=== PATIENT | female | born 1965 | race Caucasian/White ===

== ENCOUNTER 2016-08-18 18:01 | Emergency (ER) | payer OTHER ==
[~2016-08-18] VITALS: Wt 77.0 kg
[~2016-08-18 18:01] MED LIST: RISP2TAB3 PO
[2016-08-18] MEDS ORDERED: SOD CHLORIDE 0.9% 1,000 ML IV STA (18:37)
[2016-08-18] MEDS ORDERED: ACETAMINOPHEN 325 MG TAB PO ONE (19:00)
[2016-08-18 19:40] LABS: ADD SCAN DIFF NO
[2016-08-18 19:42] LABS: BASOPHIL # 0.1 10^3/ul (0.0-0.1); BASOPHILS % 0.5 % (0.0-2.0); EOSINOPHILS # 0.1 10^3/ul (0.0-0.5); EOSINOPHILS % 1.4 % (0.0-7.0); HEMATOCRIT 38.4 % (37.0-47.0); HEMOGLOBIN 13.2 g/dl (12.0-16.0); LYMPHOCYTES # 3.1 10^3/ul (0.8-2.9); LYMPHOCYTES % 32.5 % (15.0-51.0); MEAN CORPUSCULAR HEMOGLOBIN 33.2 pg (29.0-33.0); MEAN CORPUSCULAR HGB CONC 34.4 g/dl (32.0-37.0); MEAN CORPUSCULAR VOLUME 96.7 fl (82.0-101.0); MEAN PLATELET VOLUME 10.1 fl (7.4-10.4); MONOCYTE # 0.6 10^3/ul (0.3-0.9); MONOCYTES % 6.4 % (0.0-11.0); NEUTROPHIL # 5.6 10^3/ul (1.6-7.5); PLATELET COUNT 398 10^3/UL (140-415); RED BLOOD COUNT 3.97 10^6/ul (4.20-5.40); RED CELL DISTRIBUTION WIDTH 11.5 % (11.5-14.5); WHITE BLOOD COUNT 9.4 10^3/ul (4.8-10.8)
[2016-08-18 20:05] LABS: ALBUMIN 4.3 g/dl (3.3-4.9); POTASSIUM 3.9 mmol/L (3.5-5.1)
[2016-08-18 20:07] LABS: BILIRUBIN,INDIRECT 0.1 mg/dl (0-1.1); BILIRUBIN,TOTAL 0.1 mg/dl (0.2-1.3); CREATININE 0.65 mg/dl (0.44-1.00)
[2016-08-18 20:08] LABS: ALBUMIN/GLOBULIN RATIO 1.59; CALCIUM 9.1 mg/dl (8.4-10.2)
[2016-08-18 20:35] LABS: URINE BLOOD (Dip) POC Negative (NEGATIVE)
[2016-08-18] MEDS ORDERED: MECL-77 PO (20:39)
[2016-08-18] MEDS ORDERED: IBUP-1542 PO (20:39)
--- NOTE | 2016-08-18 20:41 | ERD ---
ER Documentation Chief Complaint Date/Time DATE: 08/18/16 TIME: 20:40 Chief Complaint DIZZINESS SUDDEN ONSET TODAY. NO NEURO DEF, NO RECENT TRAUMA. HPI This 51-year-old female presents with sudden onset of spinning type dizziness today. She has a low-grade temperature at triage. She has a cough, sore throat , urinary complaints, vomiting or abdominal pain, chest pain or shortness of breath. Patient denies any new medications or taking medications that she was not supposed to. History is significant for poly-medication overdose approximately 1 year ago. patient takes Celexa and Xanax per ROS All systems reviewed and are negative except as per history of present illness. Medications Home Meds Active Scripts Meclizine Hcl* (Meclizine Hcl*) 25 Mg Tablet, 25 MG PO Q8H Y for DIZZINESS, #15 TAB Prov:MEHDI NEVAREZ MD 08/18/16 Ibuprofen* (Motrin*) 600 Mg Tab, 600 MG PO Q6, #15 TAB Prov:MEHDI NEVAREZ MD 08/18/16 Reported Medications Risperidone* (Risperidone*) 2 Mg Tablet, 2 MG PO BID, TAB 08/12/15 Allergies Allergies: Coded Allergies: No Known Allergy (Unverified , 08/14/15) PMhx/Soc History of Surgery: Yes (ECTOPIC ,TONSILS,BREAST AUGMENTATION) Anesthesia Reaction: No Hx Neurological Disorder: No Hx Respiratory Disorders: No Hx Cardiac Disorders: No Hx Psychiatric Problems: Yes (schizo-affective disorder, anxiety) Hx Miscellaneous Medical Probl: Yes (schizoaffective disorder, anxiety, alcohol abuse. ) Hx Alcohol Use: Yes (OCCASSIONALLY) Hx Substance Use: No Hx Tobacco Use: No Smoking Status: Former smoker Physical Exam Vitals Vital Signs Date Time Temp Pulse Resp B/P Pulse Ox O2 Delivery O2 Flow Rate FiO2 08/18/16 18:03 100.1 102 20 137/87 98 Physical Exam Const: [] Alert, [id number] per Head: Atraumatic Eyes: Normal Conjunctiva ENT: Normal External Ears, Nose and Mouth. Neck: Full range of motion..~ No meningismus. Resp: Clear to auscultation bilaterally Cardio: Regular rate and rhythm, no murmurs Abd: Soft, non tender, non distended. Normal bowel sounds Skin: No petechiae or rashes Back: No midline or flank tenderness Ext: No cyanosis, or edema Neur: Awake and alert Psych: Blunted affect but no evidence of hallucinations or suicidal or homicidal ideations. Patient acting appropriately. Result Diagram: 08/18/[id number]/[id number] Results 24 hrs Laboratory Tests Test 08/18/16 18:49 08/18/16 20:37 White Blood Count 9.410^3/ul Red Blood Count 3.9710^6/ul Hemoglobin 13.2g/dl Hematocrit 38.4% Mean Corpuscular Volume 96.7fl Mean Corpuscular Hemoglobin 33.2pg Mean Corpuscular Hemoglobin Concent 34.4g/dl Red Cell Distribution Width 11.5% Platelet Count 58582^3/UL Mean Platelet Volume 10.1fl Neutrophils % 59.0% Lymphocytes % 32.5% Monocytes % 6.4% Eosinophils % 1.4% Basophils % 0.5% Nucleated Red Blood Cells % 0.0/100WBC Neutrophils # 5.610^3/ul Lymphocytes # 3.110^3/ul Monocytes # 0.610^3/ul Eosinophils # 0.110^3/ul Basophils # 0.110^3/ul Nucleated Red Blood Cells # 0.010^3/ul Sodium Level 138mmol/L Potassium Level 3.9mmol/L Chloride Level 109mmol/L Carbon Dioxide Level 23mmol/L Anion Gap 10 Blood Urea Nitrogen 7mg/dl Creatinine 0.65mg/dl Glucose Level 79mg/dl Calcium Level 9.1mg/dl Total Bilirubin 0.1mg/dl Direct Bilirubin 0.00mg/dl Indirect Bilirubin 0.1mg/dl Aspartate Amino Transf (AST/SGOT) 30IU/L Alanine Aminotransferase (ALT/SGPT) 36IU/L Alkaline Phosphatase 70IU/L Total Protein 7.0g/dl Albumin 4.3g/dl Globulin 2.70g/dl Albumin/Globulin Ratio 1.59 Lipase 55U/L Bedside Urine pH (LAB) 5.0 Bedside Urine Protein (LAB) Negative Bedside Urine Glucose (UA) Negative Bedside Urine Ketones (LAB) Negative Bedside Urine Blood Negative Bedside Urine Nitrite (LAB) Negative Bedside Urine Leukocyte Esterase (L Negative Current Medications Medications (Trade) Dose Ordered Sig/Dharmesh Route PRN Reason Start Time Stop Time Status Last Admin Dose Admin Sodium Chloride (NS) 1,000 ml @ 1,000 mls/hr Q1H STAT IV 08/18/16 18:37 08/18/16 19:36 DC 08/18/16 18:49 Acetaminophen (Tylenol Tab) 650 mg ONCE ONCE PO 08/18/16 19:00 08/18/16 19:01 DC 08/18/16 18:49 Procedures/MDM Patient presents with reproducible spinning type dizziness low-grade temperature of uncertain etiology. CBC and CMP and urine are all negative and hCG is negative. Patient was given 1 L normal saline IV for mild tachycardia and Tylenol 650 mg of mouth. Patient was stable amatory had benign abdomen clear lungs with no apparent distress on serial exam. Patient may have early viral illness. Patient was discharged home with prescription ibuprofen, short course of Antivert and further observation at home. The patient was stable with no new complaints during the ER course. Clinically, there is no current evidence to suggest meningitis, sepsis, acute abdomen, pneumonia, acute coronary syndrome, pulmonary embolism, or any other emergent condition appearing to require further evaluation or hospitalization. The patient should certainly return for any new or worsening symptoms per the aftercare instructions. They should otherwise follow-up with her primary care doctor for reevaluation this week. Departure Diagnosis: Primary Impression: Febrile illness Additional Impression: Dizziness Condition: Stable Patient Instructions: Dizziness, Unk Cause, Febrile Illness, Uncertain Cause ( Adult) Additional Instructions: Exam is normal today. May be early viral illness. Drink plenty of fluids and rest at home and recheck for new or worsening symptoms or primary care doctor. MEHDI NEVAREZ MD August 18, 2016 20:41
[2016-08-18 20:50] VITALS: BP 109/61; PULSE 97; RESP 16; TEMP 99.3
[2016-08-18 21:08] LABS: ADD UMIC NO; URINE BILIRUBIN (Dip) NEGATIVE (NEGATIVE); URINE BLOOD (Dip) NEGATIVE (NEGATIVE); URINE COLOR LT. YELLOW (YELLOW); URINE GLUCOSE (Dip) NEGATIVE (NEGATIVE); URINE KETONES (Dip) NEGATIVE (NEGATIVE); URINE LEUKOCYTE ESTERASE (Dip) NEGATIVE (NEGATIVE); URINE NITRITE (Dip) NEGATIVE (NEGATIVE); URINE TOTAL PROTEIN (Dip) NEGATIVE (NEGATIVE); URINE UROBILINOGEN (Dip) 0.2 E.U./dL (0.1-1.0)
== END 2016-08-18 20:51 | disposition home or self-care (01) ==
LOC: FTE 18:01
DX: R50.9 Fever, unspecified (principal); Z87.891 Personal history of nicotine dependence
CPT/HCPCS: 80053; 81003; 83690; 85025; J7030; Z7610; 36415

== ENCOUNTER 2017-07-20 20:26 | Inpatient (IN) | END 2017-07-31 14:15 | disposition home or self-care (01) | DRG 917 ==

== ENCOUNTER 2018-01-01 19:57 | Emergency (ER) | END 2018-01-01 21:00 | disposition left against medical advice (07) ==

== ENCOUNTER 2018-01-02 03:37 | Emergency (ER) | END 2018-01-02 06:07 | disposition home or self-care (01) ==

== ENCOUNTER 2018-05-11 08:46 | Emergency (ER) | payer OTHER ==
[~2018-05-11] VITALS: Ht 157.5 cm; Wt 66.2 kg
[~2018-05-11 08:46] MED LIST changes: +CEPH-443 PO; +CEPH500C PO; +METH27TA PO; +OLAN15TA7 PO
[2018-05-11 08:49] VITALS: RESP 18; Ht 157.5 cm; Wt 66.2 kg
[2018-05-11 09:09] VITALS: BP 144/103; PULSE 120
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
[2018-05-11] MEDS ORDERED: OLANZAPINE (ODT) 5 MG TAB ODT ONE (09:30)
== END 2018-05-11 09:53 | disposition home or self-care (01) ==
LOC: E/R 08:46
DX: F41.9 Anxiety disorder, unspecified (principal); F17.210 Nicotine dependence, cigarettes, uncomplicated
CPT/HCPCS: Z7502; Z7610; 99283

== ENCOUNTER 2018-05-11 10:52 | Emergency (ER) | payer OTHER ==
[~2018-05-11] VITALS: Ht 162.6 cm; Wt 65.0 kg
[2018-05-11 11:01] VITALS: BP 123/74; PULSE 113; RESP 16; Ht 162.6 cm; Wt 65.0 kg
--- NOTE | 2018-05-11 12:55 | ERD ---
ER Documentation Chief Complaint Chief Complaint BIB [facility] FOR EVAL OF ANXIETY. SEEN EARLIER TODAY FOR SAME. NO SI/HI HPI Patient is a 53-year-old female with a history of psychiatric disease who presents saying "I need a place to stay for the night". She was brought in by ambulance. She was just discharged by myself after being seen for anxiety. I believe she is malingering at this time. ROS All systems reviewed and are negative except as per history of present illness. Medications Home Meds Active Scripts Cephalexin* (Keflex*) 500 Mg Capsule, 500 MG PO QID for 5 Days, CAP Prov:BORIS LINARES PA-C 01/02/18 Cephalexin* (Cephalexin*) 500 Mg Capsule, 500 MG PO BID for 7 Days, #14 CAP Prov:PAVEL GRAVES 07/31/17 Reported Medications Methylphenidate Hcl* (Methylphenidate Hcl ER*) 27 Mg Tab.er.24, 27 MG PO BID, TAB 07/20/17 Olanzapine* (Olanzapine*) 15 Mg Tablet, 15 MG PO BID, TAB TAKE 1/2 TAB-QAM AND 1 TAB-QPM 07/20/17 Risperidone* (Risperidone*) 2 Mg Tablet, 2 MG PO BID, TAB 07/20/17 Allergies Allergies: Coded Allergies: No Known Allergy (Unverified , 07/20/17) PMhx/Soc History of Surgery: Yes (BREAST AUG) Anesthesia Reaction: No Hx Neurological Disorder: Yes Hx Respiratory Disorders: No Hx Cardiac Disorders: No Hx Psychiatric Problems: Yes (SCHIZOPHRENIA) Hx Miscellaneous Medical Probl: No Hx Alcohol Use: Yes (2 40oz daily) Hx Substance Use: Yes (alcohol, benzodiazepines) Hx Tobacco Use: Yes Smoking Status: Current some day smoker FmHx Family History: No diabetes Physical Exam Vitals Vital Signs Date Temp Pulse Resp B/P (MAP) Pulse Ox O2 O2 Flow FiO2 Time Delivery Rate 05/11/18 97.2 113 16 123/74 99 11:01 (90) Physical Exam Const: No acute distress Head: Atraumatic Eyes: Normal Conjunctiva ENT: Normal External Ears, Nose and Mouth. Neck: Full range of motion. No meningismus. Resp: Clear to auscultation bilaterally Cardio: Regular rate and rhythm, no murmurs Abd: Soft, non tender, non distended. Normal bowel sounds Skin: No petechiae or rashes Back: No midline or flank tenderness Ext: No cyanosis, or edema Neur: Awake and alert Psych: Flat affect but no suicidal or homicidal ideation Procedures/MDM Patient is a 53-year-old female who presents with anxiety. I do not believe she requires further workup or admission to the hospital at this time. I believe she has malingering. The patient will be discharged. She can return for any worsening symptoms. I do not believe she requires a 5150 hold at this time. Departure Diagnosis: Primary Impression: Malingering Condition: Fair Patient Instructions: Panic Attack Referrals: [facility] YOU HAVE RECEIVED A MEDICAL SCREENING EXAM AND THE RESULTS INDICATE THAT YOU DO NOT HAVE A CONDITION THAT REQUIRES URGENT TREATMENT IN THE EMERGENCY DEPARTMENT. FURTHER EVALUATION AND TREATMENT OF YOUR CONDITION CAN WAIT UNTIL YOU ARE SEEN IN YOUR DOCTORS OFFICE WITHIN THE NEXT 1-2 DAYS. IT IS YOUR RESPONSIBILITY TO MAKE AN APPOINTMENT FOR FOLOW-UP CARE. IF YOU HAVE A PRIMARY DOCTOR --you should call your primary doctor and schedule an appointment IF YOU DO NOT HAVE A PRIMARY DOCTOR YOU CAN CALL OUR PHYSICIAN REFERRAL HOTLINE AT IF YOU CAN NOT AFFORD TO SEE A PHYSICIAN YOU CAN CHOSE FROM THE FOLLOWING [facility] [id number] [facility]. [facility] [address] [facility]. [facility] [address] [facility] [facility] [address] [facility]. [facility] [address] [facility]. [facility]. [address] Additional Instructions: Call your primary care doctor TOMORROW for an appointment during the next [address].Tell the field secretary that you were referred from this facility.See the doctor sooner or return here if your condition worsens before your appointment time. ABIGAIL MENDIETA MD May 11, 2018 12:55
== END 2018-05-11 11:17 | disposition home or self-care (01) ==
LOC: E/R 10:52
DX: Z76.5 Malingerer [conscious simulation] (principal); F17.210 Nicotine dependence, cigarettes, uncomplicated
CPT/HCPCS: 99283

== ENCOUNTER 2018-05-12 07:22 | Emergency (ER) | payer SELFPAY ==
[~2018-05-12] VITALS: Ht 167.6 cm; Wt 66.1 kg
[2018-05-12 07:24] VITALS: BP 135/65; PULSE 81; RESP 20; Ht 167.6 cm; Wt 66.1 kg
== END 2018-05-12 10:03 | disposition left against medical advice (07) ==
LOC: E/R 07:22
DX: Z53.21 Procedure and treatment not carried out due to patient leaving prior to being seen by health care provider (principal)

== ENCOUNTER 2018-05-14 05:53 | Emergency (ER) | payer OTHER ==
[~2018-05-14] VITALS: Wt 67.2 kg
[2018-05-14 05:54] VITALS: BP 142/93; PULSE 113; RESP 18
[2018-05-14] MEDS ORDERED: LORA-441 PO (06:17)
--- NOTE | 2018-05-14 06:20 | ERD ---
ER Documentation Chief Complaint Chief Complaint ANXIETY, SOB HPI 53-year-old female presents to the emergency department complaining of anxiety. Patient states she has been compliant with her psychiatric medications but has recently begun to feel more anxious. She denies suicidal or homicidal thoughts, auditory or visual hallucinations. She does report recent alcohol use. She denies any tremor or seizure. She has no other medical complaints. She did describe some shortness of breath associated with her anxiety but no chest pain or palpitations, no fevers or chills, no hemoptysis or sputum production. ROS All systems reviewed and are negative except as per history of present illness. Medications Home Meds Active Scripts Lorazepam* (Ativan*) 0.5 Mg Tablet, 0.5 MG PO Q8 PRN for ANXIETY, #10 TAB Prov:JODIE REDDING 05/14/18 Cephalexin* (Keflex*) 500 Mg Capsule, 500 MG PO QID for 5 Days, CAP Prov:BORIS LINARES PA-C 01/02/18 Cephalexin* (Cephalexin*) 500 Mg Capsule, 500 MG PO BID for 7 Days, #14 CAP Prov:PAVEL GRAVES 07/31/17 Reported Medications Methylphenidate Hcl* (Methylphenidate Hcl ER*) 27 Mg Tab.er.24, 27 MG PO BID, TAB 07/20/17 Olanzapine* (Olanzapine*) 15 Mg Tablet, 15 MG PO BID, TAB TAKE 1/2 TAB-QAM AND 1 TAB-QPM 07/20/17 Risperidone* (Risperidone*) 2 Mg Tablet, 2 MG PO BID, TAB 07/20/17 Allergies Allergies: Coded Allergies: No Known Allergy (Unverified , 07/20/17) PMhx/Soc History of Surgery: Yes (BREAST AUG) Anesthesia Reaction: No Hx Neurological Disorder: Yes Hx Respiratory Disorders: No Hx Cardiac Disorders: No Hx Psychiatric Problems: Yes (SCHIZOPHRENIA) Hx Miscellaneous Medical Probl: No Hx Alcohol Use: Yes (2 40oz daily) Hx Substance Use: Yes (alcohol, benzodiazepines) Hx Tobacco Use: No Smoking Status: Never smoker Physical Exam Vitals Vital Signs Date Temp Pulse Resp B/P (MAP) Pulse Ox O2 O2 Flow FiO2 Time Delivery Rate 05/14/18 98.6 113 18 142/93 98 05:54 (109) Physical Exam GENERAL: The patient is well developed and appropriate for usual state of health in no apparent distress HEENT: Pupils equal, round, and reactive to light. EOMI. There is no scleral icterus. NECK: C-spine is soft and supple, there is no meningismus. There is no cervical lymphadenopathy. LUNGS: Clear to auscultation bilaterally. There are no rales, wheezes or rhonchi. HEART: Regular rate and rhythm, no murmurs, clicks, rubs or gallops. ABDOMEN: Soft, non-tender, non-distended. There are bowel sounds in all four quadrants. No rebound or guarding. EXTREMITIES: There is no peripheral cyanosis or edema. No focal swelling or erythema. NEURO: The patient moves all four extremities with 5/5 strength. Cranial nerves II - XII are intact. Normal gait. Alert and oriented no resting tremor SKIN: There is no apparent rash or petechiae. HEME/LYMPHATIC: There is no evidence of excessive bruising or lymphedema. PSYCHIATRIC: Anxious appearing. Normal mental status. No agitation., Departure Diagnosis: Primary Impression: Anxiety Condition: Stable Patient Instructions: Anxiety Reaction Additional Instructions: do not drink alcohol while taking your medication. please see your psychiatrist this week for a recheck. return for any problems or concerns JODIE REDDING May 14, 2018 06:20
== END 2018-05-14 06:30 | disposition home or self-care (01) ==
LOC: E/R 05:53
DX: F41.9 Anxiety disorder, unspecified (principal); R40.2142 Coma scale, eyes open, spontaneous, at arrival to emergency department; R40.2362 Coma scale, best motor response, obeys commands, at arrival to emergency department
CPT/HCPCS: 99283

== ENCOUNTER 2018-05-31 01:56 | Emergency (ER) | payer OTHER ==
[~2018-05-31] VITALS: Ht 165.1 cm; Wt 65.7 kg
[~2018-05-31 01:56] MED LIST changes: +LORA-441 PO
[2018-05-31 02:00] VITALS: Ht 165.1 cm; Wt 65.7 kg
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
[2018-05-31] MEDS ORDERED: LORAZEPAM 1 MG TAB PO ONE (05:00)
[2018-05-31] MEDS ORDERED: ASPIRIN 325 MG TAB PO ONE (05:00)
[2018-05-31] MEDS ORDERED: HYDR50TA15 PO (05:01)
[2018-05-31 05:36] VITALS: BP 134/97; PULSE 97; RESP 20
[2018-06-01] MEDS ORDERED: IBUP-1542 PO (16:05)
== END 2018-05-31 05:38 | disposition home or self-care (01) ==
LOC: FTE 01:56
DX: F41.1 Generalized anxiety disorder (principal)
CPT/HCPCS: 80307; 81003; 84703; 87591; 93005; Z7502; Z7610

== ENCOUNTER 2018-06-01 12:55 | Emergency (ER) | payer OTHER ==
[~2018-06-01] VITALS: Wt 66.0 kg
[~2018-06-01 12:55] MED LIST changes: +HYDR50TA15 PO
[2018-06-01 13:10] VITALS: BP 133/70; PULSE 99; RESP 17
[2018-06-01] MEDS ORDERED: LIDOCAINE 1% (MDV) 10 ML INJ INJ STA (15:13)
[2018-06-01] MEDS ORDERED: ACETAMINOPHEN 650MG/20.3ML CUP PO STA (15:13)
--- NOTE | 2018-06-01 15:21 | ERD ---
ER Documentation Chief Complaint Chief Complaint FOREHEAD LAC S/P GLF, NO KO HPI Patient is a 53-year-old female presents to the ED with a head injury status post mechanical trip and fall earlier today. Patient states she was walking out of her [employer] when she accidentally tripped on her slippers and fell face forw michael. There was no loss of consciousness, nausea or vomiting. There were no precipitating factors.. Patient sustained a small laceration to her frontal scalp. No other injuries reported. No neck pain, no back pain, no changes in vision. No numbness, tingling, focal weakness. She is here with her friends who stated that patient was a little confused for less than 30 minutes after the injury but did not pass out. Friend states that patient is now at baseline. ROS All systems reviewed and are negative except as per history of present illness. Medications Home Meds Active Scripts Ibuprofen* (Motrin*) 600 Mg Tab, 600 MG PO Q6H PRN for PAIN AND OR ELEVATED TEMP, #30 TAB Prov:VANDANA PASTRANA PA-C 06/01/18 Hydroxyzine Hcl* (Hydroxyzine Hcl*) 50 Mg Tablet, 50 MG PO Q6H PRN for ANXIETY, #30 TAB Prov:MONE AGUILAR 05/31/18 Lorazepam* (Ativan*) 0.5 Mg Tablet, 0.5 MG PO Q8 PRN for ANXIETY, #10 TAB Prov:JODIE REDDING 05/14/18 Cephalexin* (Keflex*) 500 Mg Capsule, 500 MG PO QID for 5 Days, CAP Prov:BORIS LINARES PA-C 01/02/18 Cephalexin* (Cephalexin*) 500 Mg Capsule, 500 MG PO BID for 7 Days, #14 CAP Prov:PAVEL GRAVES 07/31/17 Reported Medications Methylphenidate Hcl* (Methylphenidate Hcl ER*) 27 Mg Tab.er.24, 27 MG PO BID, TAB 07/20/17 Olanzapine* (Olanzapine*) 15 Mg Tablet, 15 MG PO BID, TAB TAKE 1/2 TAB-QAM AND 1 TAB-QPM 07/20/17 Risperidone* (Risperidone*) 2 Mg Tablet, 2 MG PO BID, TAB 07/20/17 Allergies Allergies: Coded Allergies: No Known Allergy (Unverified , 05/31/18) PMhx/Soc History of Surgery: Yes (BREAST AUG) Anesthesia Reaction: No Hx Neurological Disorder: Yes Hx Respiratory Disorders: No Hx Cardiac Disorders: No Hx Psychiatric Problems: Yes (SCHIZOPHRENIA) Hx Miscellaneous Medical Probl: No Hx Alcohol Use: Yes (2 40oz daily) Hx Substance Use: Yes (alcohol, benzodiazepines) Hx Tobacco Use: No Physical Exam Vitals Vital Signs Date Temp Pulse Resp B/P (MAP) Pulse Ox O2 O2 Flow FiO2 Time Delivery Rate 06/01/18 98.6 99 17 133/70 98 13:10 (91) Physical Exam Const: No acute distress. Alert awake and oriented x3. Head: + 3 cm linear vertical laceration to mid frontal scalp with an un derlying hematoma. Eyes: Normal Conjunctiva. No weber signs or raccoon eyes. ENT: Normal External Ears, Nose and Mouth. No hemotympanum. Neck: Full range of motion. No meningismus Back: No midline or flank tenderness Ext: No cyanosis, or edema Neuro: M/S: Alert and oriented Face: EOMI, face and pharynx with normal sensation and function Motor: Normal strength throughout Sensation: Normal sensation throughout Speech: Normal Cerebel: Normal coordination Normal gait Normal finger to nose Psych: Normal Mood and Affect Results 24 hrs Current Medications Medications Dose Sig/Dharmesh Start Time Status Last (Trade) Ordered Route PRN Stop Time Admin Dose Reason Admin Diphtheria/ 0.5 ml ONCE ONCE 06/01/18 DC 06/01/18 Tetanus/Acell IM* 15:30 16:06 Pertussis 06/01/18 15:31 (Adacel) Lidocaine 10 ml ONCE STAT 06/01/18 DC HCl INJ 15:13 (Lidocaine 06/01/18 15:30 1% (Mdv) 10 ml) 650 mg ONCE STAT 06/01/18 DC 06/01/18 Acetaminophen PO 15:13 16:05 (Tylenol 06/01/18 15:15 Liquid) Lidocaine 20 ml ONCE STAT 06/01/18 DC (Xylocaine INJ 15:29 2% (Mdv) 20 06/01/18 15:30 ml) Procedures/MDM Laceration Repair by me: Anesthesia: 1% lidocaine locally Location: Mid frontal scalp Tendon/Joint/Nerves: No injury Foreign body: None detected after copious irrigation and exploration Technique: 5-0 ethilon simple Interrupted Sutures (x4) Complexity: No subcutaneous sutures/mucosal repair/edge excision Post Closure Length: 3 cm Patient's bleeding was easily controlled in the department and there is no indication of anemia. No evidence of compartment syndrome, neurologic injury, vascular injury, open joint, tendon laceration, or foreign body. Patient is appropriate for outpatient follow up. 48 hour wound check. Scar minimization instructions given. MEDICAL DECISION MAKING: This is a 53-year-old female who presents to the ED with a frontal scalp laceration status post mechanical trip and fall earlier today. Patient has no focal neurological deficits on physical exam. Risks and benefits of CT Scan were discussed with all present and we agree at this time that a trial of watchful waiting is most appropriate. She has no symptoms to suggest intracranial bleeding or skull fracture. Laceration was therefore irrigated, cleaned and sutured as above. Patient tolerated procedure well. Tetanus was updated. Pain was controlled with Tylenol here. Patient stable for outpatient management and follow-up. She was told to either return here see her primary care physician in 2 days for wound recheck. Sutures can be removed in 5 days. Return to the ED for any worsening pain, headache, fevers, discharge, or any other symptoms. Strict return precautions given. Departure Diagnosis: Primary Impression: Scalp laceration Encounter type: initial encounter Qualified Codes: S01.01XA - Laceration without foreign body of scalp, initial encounter Additional Impressions: Head injury Encounter type: initial encounter Qualified Codes: S09.90XA - Unspecified injury of head, initial encounter TBI (traumatic brain injury) Encounter type: initial encounter Loss of consciousness presence/duration: without LOC Qualified Codes: S06.9X0A - Unspecified intracranial injury without loss of consciousness, initial encounter Condition: Stable Patient Instructions: HEAD INJURY, No Wake-Up (Adult), Laceration, Scalp Referrals: [facility] Additional Instructions: Thank you very much for allowing us to participate in your care. Your health and safety is our top priority at [facility]. Call your primary care doctor TOMORROW for an appointment during the next 2-4 days and bring all the information and medications prescribed. If the symptoms get worse and your provider is unavailable, return to the Emergency Department immediately. VANDANA PASTRANA PA-C Jun 01, 2018 15:21
[2018-06-01] MEDS ORDERED: LIDOCAINE 2% (MDV) 20 ML INJ INJ STA (15:29)
[2018-06-01] MEDS ORDERED: DIPHTH/TET/ACEL PERTUSS (ADULT) 0.5 ML VIAL IM* ONE (15:30)
[2018-06-01] MEDS ORDERED: IBUP-1542 PO (16:05)
== END 2018-06-01 16:23 | disposition home or self-care (01) ==
LOC: FTE 12:55
DX: S01.01XA Laceration without foreign body of scalp, initial encounter (principal); S06.9X0A Unspecified intracranial injury without loss of consciousness, initial encounter; W01.0XXA Fall on same level from slipping, tripping and stumbling without subsequent striking against object, initial encounter; Y92.22 Religious institution as the place of occurrence of the external cause; Z23 Encounter for immunization
CPT/HCPCS: 12002; 90471; 90715; Z7502; Z7610

== ENCOUNTER 2018-06-03 10:09 | Emergency (ER) | payer SELFPAY ==
[~2018-06-03 10:09] MED LIST changes: +IBUP-1542 PO
== END 2018-06-03 10:12 | disposition left against medical advice (07) ==
LOC: E/R 10:09
DX: Z53.21 Procedure and treatment not carried out due to patient leaving prior to being seen by health care provider (principal)

== ENCOUNTER 2018-06-05 08:02 | Emergency (ER) | payer OTHER ==
[~2018-06-05] VITALS: Ht 162.6 cm; Wt 66.8 kg
[2018-06-05 08:05] VITALS: BP 115/69; PULSE 77; RESP 20; Ht 162.6 cm; Wt 66.8 kg
--- NOTE | 2018-06-05 10:21 | ERD ---
ER Documentation Chief Complaint Chief Complaint wound re check HPI 53-year-old female presenting for wound check. Patient had laceration on mid forehead after she fell at [employer] 4 days ago. Patient denies any loss of consciousness or vomiting. She states that her wound is healing appropriately and does not have any severe headaches or visual changes. Denies medical problems. NKDA. Surgical history is breast augmentation and ectopic . Social history smokes 1 cigarette a day. ROS All systems reviewed and are negative except as per history of present illness. Medications Home Meds Active Scripts Ibuprofen* (Motrin*) 600 Mg Tab, 600 MG PO Q6H PRN for PAIN AND OR ELEVATED TEMP, #30 TAB Prov:VANDANA PASTRANA PA-C 06/01/18 Hydroxyzine Hcl* (Hydroxyzine Hcl*) 50 Mg Tablet, 50 MG PO Q6H PRN for ANXIETY, #30 TAB Prov:MONE AGUILAR 05/31/18 Lorazepam* (Ativan*) 0.5 Mg Tablet, 0.5 MG PO Q8 PRN for ANXIETY, #10 TAB Prov:JODIE REDDING 05/14/18 Cephalexin* (Keflex*) 500 Mg Capsule, 500 MG PO QID for 5 Days, CAP Prov:BORIS LINARES PA-C 01/02/18 Cephalexin* (Cephalexin*) 500 Mg Capsule, 500 MG PO BID for 7 Days, #14 CAP Prov:PAVEL GRAVES 07/31/17 Reported Medications Methylphenidate Hcl* (Methylphenidate Hcl ER*) 27 Mg Tab.er.24, 27 MG PO BID, TAB 07/20/17 Olanzapine* (Olanzapine*) 15 Mg Tablet, 15 MG PO BID, TAB TAKE 1/2 TAB-QAM AND 1 TAB-QPM 07/20/17 Risperidone* (Risperidone*) 2 Mg Tablet, 2 MG PO BID, TAB 07/20/17 Allergies Allergies: Coded Allergies: No Known Allergy (Unverified , 06/05/18) PMhx/Soc History of Surgery: Yes (BREAST AUG) Anesthesia Reaction: No Hx Neurological Disorder: Yes Hx Respiratory Disorders: No Hx Cardiac Disorders: No Hx Psychiatric Problems: Yes (SCHIZOPHRENIA) Hx Miscellaneous Medical Probl: Yes (ECTOPIC ) Hx Alcohol Use: Yes (SOMETIMES) Hx Substance Use: Yes (alcohol, benzodiazepines) Hx Tobacco Use: No Smoking Status: Never smoker FmHx Family History: No diabetes, No coronary disease, No other Physical Exam Vitals Vital Signs Date Temp Pulse Resp B/P (MAP) Pulse Ox O2 O2 Flow FiO2 Time Delivery Rate 06/05/18 98.2 77 20 115/69 100 08:05 (84) Physical Exam GENERAL: The patient is well-appearing, well-nourished, in no acute distress HEENT: Atraumatic. Conjunctivae are pink. Pupils equal, round, and reactive to light. There is no scleral icterus. Tympanic membranes clear bilaterally. Oropharynx clear. No nystagmus or photophobia. CHEST: Clear to auscultation bilaterally. There are no rales, wheezes or rhonchi. HEART: Regular rate and rhythm. No murmurs, clicks, rubs or gallops. NEUROLOGIC: Alert and oriented. Cranial nerves II through XII intact. Motor strength in all 4 extremities with 5 out of 5 strength. Sensation grossly intact. SKIN: Laceration site noted to mid forehead. [address] with no surrounding erythema or dehiscence of the wound. Procedures/MDM ER course: Wound cleaned appropriately and Steri-Strips applied. MDM: 53-year-old female presenting for wound check. Patient had sutures removed in 4 more days. I have low suspicion for intracranial hemorrhage or neuro deficit. I have low suspicion for wound infection. Patient is discharged stricter precautions and told to follow-up with primary care within 1-2 days for close evaluation. Patient is told if symptoms change or worsen to return immediately to the ER. All questions answered at discharge Departure Diagnosis: Primary Impression: Follow-up examination for injury Condition: Stable Patient Instructions: Wound Check, Lac F/U (No Infection) Referrals: COMM[facility] CLINICS YOU HAVE RECEIVED A MEDICAL SCREENING EXAM AND THE RESULTS INDICATE THAT YOU DO NOT HAVE A CONDITION THAT REQUIRES URGENT TREATMENT IN THE EMERGENCY DEPARTMENT. FURTHER EVALUATION AND TREATMENT OF YOUR CONDITION CAN WAIT UNTIL YOU ARE SEEN IN YOUR DOCTORS OFFICE WITHIN THE NEXT 1-2 DAYS. IT IS YOUR RESPONSIBILITY TO MAKE AN APPOINTMENT FOR FOLOW-UP CARE. IF YOU HAVE A PRIMARY DOCTOR --you should call your primary doctor and schedule an appointment IF YOU DO NOT HAVE A PRIMARY DOCTOR YOU CAN CALL OUR PHYSICIAN REFERRAL HOTLINE AT IF YOU CAN NOT AFFORD TO SEE A PHYSICIAN YOU CAN CHOSE FROM THE FOLLOWING [facility] [address] [facility] [address] [facility]. [facility] [address] [facility] [address] [facility]. [facility] [phone] [facility]. [facility] [address] Additional Instructions: FOLLOW UP WITH YOUR PRIMARY CARE PHYSICIAN TOMORROW.Return to this facility if you are not improving as expected. BORIS LINARES PA-C Jun 05, 2018 10:20
== END 2018-06-05 08:31 | disposition home or self-care (01) ==
LOC: FTE 08:02
DX: Z48.01 Encounter for change or removal of surgical wound dressing (principal)
CPT/HCPCS: 99281

== ENCOUNTER 2018-06-07 06:11 | Emergency (ER) | payer OTHER ==
[~2018-06-07] VITALS: Ht 162.6 cm; Wt 66.2 kg
[2018-06-07 06:26] VITALS: BP 121/77; PULSE 88; RESP 18; Ht 162.6 cm; Wt 66.2 kg
[2018-06-07] MEDS ORDERED: BACITUD TOP (08:01)
--- NOTE | 2018-06-07 08:06 | ERD ---
ER Documentation Chief Complaint Chief Complaint for suture removal on forehead HPI Patient is a 53-year-old female presents the ER for concerns of suture removal. Patient sustained a laceration to her head on 06-01-18. Patient denies any headache, nausea vomiting or loss consciousness. Patient states she is here for suture removal. Tetanus is up-to-date. ROS All systems reviewed and are negative except as per history of present illness. Medications Home Meds Active Scripts Bacitracin* (Bacitracin Oint (UD)*) 1 Applic Oint, 1 APPLIC TOP BID, #5 PKT APPLY TO Prov:JOSEY HO PA-C 06/07/18 Ibuprofen* (Motrin*) 600 Mg Tab, 600 MG PO Q6H PRN for PAIN AND OR ELEVATED TEMP, #30 TAB Prov:VANDANA PASTRANA PA-C 06/01/18 Hydroxyzine Hcl* (Hydroxyzine Hcl*) 50 Mg Tablet, 50 MG PO Q6H PRN for ANXIETY, #30 TAB Prov:MONE AGUILAR 05/31/18 Lorazepam* (Ativan*) 0.5 Mg Tablet, 0.5 MG PO Q8 PRN for ANXIETY, #10 TAB Prov:JODIE REDDING 05/14/18 Cephalexin* (Keflex*) 500 Mg Capsule, 500 MG PO QID for 5 Days, CAP Prov:BORIS LINARES PA-C 01/02/18 Cephalexin* (Cephalexin*) 500 Mg Capsule, 500 MG PO BID for 7 Days, #14 CAP Prov:PAVEL GRAVES 07/31/17 Reported Medications Methylphenidate Hcl* (Methylphenidate Hcl ER*) 27 Mg Tab.er.24, 27 MG PO BID, TAB 07/20/17 Olanzapine* (Olanzapine*) 15 Mg Tablet, 15 MG PO BID, TAB TAKE 1/2 TAB-QAM AND 1 TAB-QPM 07/20/17 Risperidone* (Risperidone*) 2 Mg Tablet, 2 MG PO BID, TAB 07/20/17 Allergies Allergies: Coded Allergies: No Known Allergy (Unverified , 06/05/18) PMhx/Soc History of Surgery: Yes (BREAST AUG) Anesthesia Reaction: No Hx Neurological Disorder: Yes Hx Respiratory Disorders: No Hx Cardiac Disorders: No Hx Psychiatric Problems: Yes (SCHIZOPHRENIA) Hx Miscellaneous Medical Probl: Yes (ECTOPIC ) Hx Alcohol Use: Yes (SOMETIMES) Hx Substance Use: Yes (alcohol, benzodiazepines) Hx Tobacco Use: No FmHx Family History: No diabetes Physical Exam Vitals Vital Signs Date Temp Pulse Resp B/P (MAP) Pulse Ox O2 O2 Flow FiO2 Time Delivery Rate 06/07/18 97.8 88 18 121/77 98 06:26 (92) Physical Exam GENERAL: Well-developed, well-nourished female. Appears in no acute distress. HEAD: Normocephalic, atraumatic. EYES: Pupils are equally reactive bilaterally. EOMs grossly intact. No conjunctival erythema. ENT: Moist mucous membranes. No uvula deviation. No kissing tonsils. NECK: Supple. No meningismus. Normal range of motion of the neck. LUNG: No respiratory distress EXTREMITIES: Equal pulses bilaterally. No peripheral clubbing, cyanosis or aliza ma. No unilateral leg swelling. NEUROLOGIC: Alert and oriented. Moving all four extremities without any difficulty. Normal speech. Steady gait. SKIN: 4 sutures noted in the frontal scalp. No wound dehiscence. Surrounding skin is slightly erythematous, no drainage, no fluctuance. No streaking or warmth. Procedures/MDM Suture Removal by me: 4 Suture removed without incident. Wound shows no evidence of infection, foreign body, neurologic injury, vascular injury, open joint or tendon laceration. Patient was given prescription for bacitracin to be applied to the wound. Patient to follow up PRN. Departure Diagnosis: Primary Impression: Encounter for removal of sutures Condition: Stable Patient Instructions: Suture Removal, No Complication Referrals: [facility] YOU HAVE RECEIVED A MEDICAL SCREENING EXAM AND THE RESULTS INDICATE THAT YOU DO NOT HAVE A CONDITION THAT REQUIRES URGENT TREATMENT IN THE EMERGENCY DEPARTMENT. FURTHER EVALUATION AND TREATMENT OF YOUR CONDITION CAN WAIT UNTIL YOU ARE SEEN IN YOUR DOCTORS OFFICE WITHIN THE NEXT 1-2 DAYS. IT IS YOUR RESPONSIBILITY TO MAKE AN APPOINTMENT FOR FOLOW-UP CARE. IF YOU HAVE A PRIMARY DOCTOR --you should call your primary doctor and schedule an appointment IF YOU DO NOT HAVE A PRIMARY DOCTOR YOU CAN CALL OUR PHYSICIAN REFERRAL HOTLINE AT IF YOU CAN NOT AFFORD TO SEE A PHYSICIAN YOU CAN CHOSE FROM THE FOLLOWING [facility] [address] [facility]. [facility] [address] [facility] [facility] [address] [facility] [address] [facility]. [facility] [address] [facility]. [facility] [address] [facility]. [facility] YOU HAVE RECEIVED A MEDICAL SCREENING EXAM AND THE RESULTS INDICATE THAT YOU DO NOT HAVE A CONDITION THAT REQUIRES URGENT TREATMENT IN THE EMERGENCY DEPARTMENT. FURTHER EVALUATION AND TREATMENT OF YOUR CONDITION CAN WAIT UNTIL YOU ARE SEEN IN YOUR DOCTORS OFFICE WITHIN THE NEXT 1-2 DAYS. IT IS YOUR RESPONSIBILITY TO MAKE AN APPOINTMENT FOR FOLOW-UP CARE. IF YOU HAVE A PRIMARY DOCTOR --you should call your primary doctor and schedule and appointment IF YOU DO NOT HAVE A PRIMARY DOCTOR YOU CAN CALL OUR PHYSICIAN REFERRAL HOTLINE AT . IF YOU CAN NOT AFFORD TO SEE A PHYSICIAN YOU CAN CHOSE FROM THE FOLLOWING [facility] INSTITUTIONS: [facility] [address] [place] [address] [facility] [address] [place] [address] [facility] [address] [place] [address] Additional Instructions: Call your primary care doctor TOMORROW for an appointment during the next 1-2 days.See the doctor sooner or return here if your condition worsens before your appointment time. JOSEY HO PA-C Jun 07, 2018 08:06
== END 2018-06-07 08:07 | disposition home or self-care (01) ==
LOC: FTE 06:11
DX: Z48.02 Encounter for removal of sutures (principal)
CPT/HCPCS: 99282

== ENCOUNTER 2018-06-13 07:06 | Emergency (ER) | payer SELFPAY ==
[~2018-06-13] VITALS: Ht 162.6 cm; Wt 64.0 kg
[~2018-06-13 07:06] MED LIST changes: +BACITUD TOP
[2018-06-13 07:11] VITALS: BP 135/96; PULSE 105; RESP 18; Ht 162.6 cm; Wt 64.0 kg
[2018-06-13] MEDS ORDERED: KETOROLAC 60 MG INJ IM STA (07:31)
[2018-06-13] MEDS ORDERED: BUTA1CAP38 PO (07:53)
--- NOTE | 2018-06-13 08:15 | ERD ---
ER Documentation Chief Complaint Chief Complaint pt is bib self with c/o headache starting last night, HPI 53-year-old female presenting with complaints of headache that started last night. She denies any vomiting. Denies any falls or injuries. Has not had any changes in urination or bowel movement. Denies any fevers or visual changes. She states he has a history of headaches and she is requesting medications. Denies other medical problems. NKDA. Surgical history denies. Social history denies. Denies drug use. ROS All systems reviewed and are negative except as per history of present illness. Medications Home Meds Active Scripts Loslbldwna-Qetwmsbpzppgb-Ktziuuew* (Fioricet*) 50-300-40 Mg Capsule, 1 CAP PO Q4H PRN for HEADACHE, #10 CAP Prov:BORIS LINARES PA-C 06/13/18 Bacitracin* (Bacitracin Oint (UD)*) 1 Applic Oint, 1 APPLIC TOP BID, #5 PKT APPLY TO Prov:JOSEY HO PA-C 06/07/18 Ibuprofen* (Motrin*) 600 Mg Tab, 600 MG PO Q6H PRN for PAIN AND OR ELEVATED TEMP, #30 TAB Prov:VANDANA PASTRANA PA-C 06/01/18 Hydroxyzine Hcl* (Hydroxyzine Hcl*) 50 Mg Tablet, 50 MG PO Q6H PRN for ANXIETY, #30 TAB Prov:MONE AGUILAR 05/31/18 Lorazepam* (Ativan*) 0.5 Mg Tablet, 0.5 MG PO Q8 PRN for ANXIETY, #10 TAB Prov:JODIE REDDING 05/14/18 Cephalexin* (Keflex*) 500 Mg Capsule, 500 MG PO QID for 5 Days, CAP Prov:BORIS LINARES PA-C 01/02/18 Cephalexin* (Cephalexin*) 500 Mg Capsule, 500 MG PO BID for 7 Days, #14 CAP Prov:PAVEL GRAVES 07/31/17 Reported Medications Methylphenidate Hcl* (Methylphenidate Hcl ER*) 27 Mg Tab.er.24, 27 MG PO BID, TAB 07/20/17 Olanzapine* (Olanzapine*) 15 Mg Tablet, 15 MG PO BID, TAB TAKE 1/2 TAB-QAM AND 1 TAB-QPM 07/20/17 Risperidone* (Risperidone*) 2 Mg Tablet, 2 MG PO BID, TAB 07/20/17 Allergies Allergies: Coded Allergies: No Known Allergy (Unverified , 06/05/18) PMhx/Soc History of Surgery: Yes (BREAST AUG) Anesthesia Reaction: No Hx Neurological Disorder: Yes Hx Respiratory Disorders: No Hx Cardiac Disorders: No Hx Psychiatric Problems: Yes (SCHIZOPHRENIA) Hx Miscellaneous Medical Probl: Yes (ECTOPIC ) Hx Alcohol Use: Yes (SOMETIMES) Hx Substance Use: Yes (alcohol, benzodiazepines) Hx Tobacco Use: No Smoking Status: Never smoker FmHx Family History: No diabetes, No coronary disease, No other Physical Exam Vitals Vital Signs Date Temp Pulse Resp B/P (MAP) Pulse Ox O2 O2 Flow FiO2 Time Delivery Rate 06/13/18 97.9 105 18 135/96 98 07:11 (109) Physical Exam GENERAL: The patient is well-appearing, well-nourished, in no acute distress HEENT: Atraumatic. Conjunctivae are pink. Pupils equal, round, and reactive to light. Pupils appear to be pinpoint however are reactive. There is no scleral icterus. Tympanic membranes clear bilaterally. Oropharynx clear. No nystagmus or photophobia. NECK: C-spine is soft and supple. There is no meningismus. There is no cervical lymphadenopathy. CHEST: Clear to auscultation bilaterally. There are no rales, wheezes or rhonchi. HEART: Regular rate and rhythm. No murmurs, clicks, rubs or gallops. EXTREMITIES: Equal pulses bilaterally. There is no peripheral clubbing, cyanosis or edema. No focal swelling or erythema. Full range of motion. Grossly neurovascularly intact. NEUROLOGIC: Alert and oriented. Cranial nerves II through XII intact. Motor strength in all 4 extremities with 5 out of 5 strength. Sensation grossly intac t. Normal speech and gait. SKIN: Healing previous suture sites to the face. Results 24 hrs Laboratory Tests Test 06/13/18 07:35 06/13/18 07:38 Bedside Urine pH (LAB) 5.5 Bedside Urine Protein (LAB) Negative Bedside Urine Glucose (UA) Negative Bedside Urine Ketones (LAB) 2+ Bedside Urine Blood Negative Bedside Urine Nitrite (LAB) Negative Bedside Urine Leukocyte Esterase (L Negative POC Beta HCG, Qualitative NEGATIVE Current Medications Medications Dose Sig/Dharmesh Start Time Status Last (Trade) Ordered Route PRN Stop Time Admin Dose Reason Admin Ketorolac 60 mg ONCE STAT 06/13/18 DC 06/13/18 Tromethamine IM 07:31 07:48 (Toradol) 06/13/18 07:32 Procedures/MDM ER course: CT head ordered however patient declined scan. Patient signed AMA form. Toradol given ED. Urine negative. DM: 53-year-old female presenting with headache. Patient did have a CT scan ordered however she declined at this time. Patient had pinpoint pupils however they were equal and reactive. I have considered drug use as a possibility however patient declined drug use. I have low suspicion for acute intracranial hemorrhage or neuro deficit. Patient left AMA from the ER. Strict ER precautions were reviewed prior to patient leaving Departure Diagnosis: Primary Impression: Headache Condition: Stable Patient Instructions: Self-Care for Headaches Referrals: [facility] YOU HAVE RECEIVED A MEDICAL SCREENING EXAM AND THE RESULTS INDICATE THAT YOU DO NOT HAVE A CONDITION THAT REQUIRES URGENT TREATMENT IN THE EMERGENCY DEPARTMENT. FURTHER EVALUATION AND TREATMENT OF YOUR CONDITION CAN WAIT UNTIL YOU ARE SEEN IN YOUR DOCTORS OFFICE WITHIN THE NEXT 1-2 DAYS. IT IS YOUR RESPONSIBILITY TO MAKE AN APPOINTMENT FOR FOLOW-UP CARE. IF YOU HAVE A PRIMARY DOCTOR --you should call your primary doctor and schedule an appointment IF YOU DO NOT HAVE A PRIMARY DOCTOR YOU CAN CALL OUR PHYSICIAN REFERRAL HOTLINE AT IF YOU CAN NOT AFFORD TO SEE A PHYSICIAN YOU CAN CHOSE FROM THE FOLLOWING [facility] [address] [facility]. [facility] [address] [facility]. [facility] [address] [facility] [address] [facility]. [facility] [address] [facility] [facility]. [facility]. [address] Additional Instructions: FOLLOW UP WITH YOUR PRIMARY CARE PHYSICIAN TOMORROW.Return to this facility if you are not improving as expected. BORIS LINARES PA-C Jun 13, 2018 08:15
== END 2018-06-13 08:09 | disposition left against medical advice (07) ==
LOC: FTE 07:06
DX: R51 Headache (principal)
CPT/HCPCS: 81003; 81025; 96372; 99285; J1885

== ENCOUNTER 2018-06-13 08:44 | Emergency (ER) | payer SELFPAY ==
[~2018-06-13] VITALS: Ht 162.6 cm; Wt 72.0 kg
[~2018-06-13 08:44] MED LIST changes: +BUTA1CAP38 PO
[2018-06-13 08:45] VITALS: BP 156/83; PULSE 74; RESP 18; Ht 162.6 cm; Wt 72.0 kg
== END 2018-06-13 09:46 | disposition left against medical advice (07) ==
LOC: E/R 08:44
DX: Z53.21 Procedure and treatment not carried out due to patient leaving prior to being seen by health care provider (principal)

== ENCOUNTER 2018-06-19 12:28 | Emergency (ER) | payer OTHER ==
[~2018-06-19] VITALS: Ht 162.6 cm; Wt 64.9 kg
[2018-06-19 12:35] VITALS: Ht 162.6 cm; Wt 64.9 kg
[2018-06-19] MEDS ORDERED: RISP2TAB3 PO (14:30)
--- NOTE | 2018-06-19 16:04 | ERD ---
ER Documentation Chief Complaint Chief Complaint verbalized - aliens are taking over - claims hearing stuff; on resperidone HPI 53-year-old woman with a history of psychiatric illness here for auditory hallucinations, she states she normally uses risperidone but also drank alcohol and used methamphetamine in alprazolam prior to arrival. She has had recent thoughts of killing herself. She denies fevers or chills, no chest pain or shortness of breath, no headache or blurry vision. ROS All systems reviewed and are negative except as per history of present illness. Medications Home Meds Active Scripts Onuonebask-Vfvwtzrpnaywm-Omcxqthf* (Fioricet*) 50-300-40 Mg Capsule, 1 CAP PO Q4H PRN for HEADACHE, #10 CAP Prov:BORIS LINARES PA-C 06/13/18 Bacitracin* (Bacitracin Oint (UD)*) 1 Applic Oint, 1 APPLIC TOP BID, #5 PKT APPLY TO Prov:JOSEY HO PA-C 06/07/18 Ibuprofen* (Motrin*) 600 Mg Tab, 600 MG PO Q6H PRN for PAIN AND OR ELEVATED TEMP, #30 TAB Prov:VANDANA PASTRANA PA-C 06/01/18 Hydroxyzine Hcl* (Hydroxyzine Hcl*) 50 Mg Tablet, 50 MG PO Q6H PRN for ANXIETY, #30 TAB Prov:MONE AGUILAR 05/31/18 Reported Medications Risperidone* (Risperidone*) 2 Mg Tablet, 2 MG PO BID, TAB 06/19/18 Discontinued Reported Medications Methylphenidate Hcl* (Methylphenidate Hcl ER*) 27 Mg Tab.er.24, 27 MG PO BID, TAB 07/20/17 Olanzapine* (Olanzapine*) 15 Mg Tablet, 15 MG PO BID, TAB TAKE 1/2 TAB-QAM AND 1 TAB-QPM 07/20/17 Risperidone* (Risperidone*) 2 Mg Tablet, 2 MG PO BID, TAB 07/20/17 Discontinued Scripts Lorazepam* (Ativan*) 0.5 Mg Tablet, 0.5 MG PO Q8 PRN for ANXIETY, #10 TAB Prov:JODIE REDDING 05/14/18 Cephalexin* (Keflex*) 500 Mg Capsule, 500 MG PO QID for 5 Days, CAP Prov:BORIS LINARES PA-C 01/02/18 Cephalexin* (Cephalexin*) 500 Mg Capsule, 500 MG PO BID for 7 Days, #14 CAP Prov:PAVEL GRAVES 07/31/17 Allergies Allergies: Coded Allergies: No Known Allergy (Unverified , 06/19/18) PMhx/Soc Psychiatric illness, benzodiazepine and amphetamine abuse History of Surgery: Yes (BREAST AUG) Anesthesia Reaction: No Hx Neurological Disorder: Yes Hx Respiratory Disorders: No Hx Cardiac Disorders: No Hx Psychiatric Problems: Yes (SCHIZOPHRENIA) Hx Miscellaneous Medical Probl: Yes (ECTOPIC ) Hx Alcohol Use: Yes (alcohol) Hx Substance Use: Yes (benzodiazepines, meth) Hx Tobacco Use: Yes Smoking Status: Current some day smoker FmHx Family History: No diabetes Physical Exam Vitals Vital Signs Date Temp Pulse Resp B/P (MAP) Pulse Ox O2 O2 Flow FiO2 Time Delivery Rate 06/19/18 98.0 99 26 129/88 99 Room Air 15:05 (102) 06/19/18 98.5 94 20 153/94 100 12:35 (113) Physical Exam Const: No acute distress, afebrile Resp: Clear to auscultation bilaterally Cardio: Regular rate and rhythm, no murmurs Abd: Soft, non tender, non distended. Normal bowel sounds Skin: No petechiae or rashes Back: No midline or flank tenderness Ext: No cyanosis, or edema Neur: Awake and alert x3, appears lethargic and intoxicated with benzos, pupils equal round reactive to light Psych: Lethargic, depressed Result Diagram: 06/19/18 1455 06/19/18 1454 Results 24 hrs Laboratory Tests Test 06/19/18 14:54 06/19/18 14:55 Sodium Level 144 mmol/L Potassium Level 4.3 mmol/L Chloride Level 107 mmol/L Carbon Dioxide Level 25 mmol/L Anion Gap 12 Blood Urea Nitrogen 8 mg/dl Creatinine 0.74 mg/dl Est Glomerular Filtrat Rate mL/min > 60 mL/min Glucose Level 88 mg/dl Calcium Level 9.8 mg/dl Total Bilirubin 0.2 mg/dl Direct Bilirubin 0.00 mg/dl Indirect Bilirubin 0.2 mg/dl Aspartate Amino Transf (AST/SGOT) 38 IU/L Alanine Aminotransferase (ALT/SGPT) 29 IU/L Alkaline Phosphatase 99 IU/L Total Protein 7.6 g/dl Albumin 4.6 g/dl Globulin 3.00 g/dl Albumin/Globulin Ratio 1.53 Salicylates Level < 1.0 mg/dl Urine Opiates Screen Negative Acetaminophen Level < 10.0 ug/ml Urine Barbiturates Negative Urine Amphetamines Screen POS Urine Benzodiazepines Screen Positive Urine Cocaine Screen Negative Urine Cannabinoids Negative Ethyl Alcohol Level < 10.0 mg/dl White Blood Count 9.2 10^3/ul Red Blood Count 4.52 10^6/ul Hemoglobin 15.0 g/dl Hematocrit 44.8 % Mean Corpuscular Volume 99.1 fl Mean Corpuscular Hemoglobin 33.2 pg Mean Corpuscular Hemoglobin Concent 33.5 g/dl Red Cell Distribution Width 12.4 % Platelet Count 310 10^3/UL Mean Platelet Volume 9.4 fl Immature Granulocytes % 0.500 % Neutrophils % 63.4 % Lymphocytes % 27.5 % Monocytes % 7.4 % Eosinophils % 0.7 % Basophils % 0.5 % Nucleated Red Blood Cells % 0.0 /100WBC Immature Granulocytes # 0.050 10^3/ul Neutrophils # 5.9 10^3/ul Lymphocytes # 2.5 10^3/ul Monocytes # 0.7 10^3/ul Eosinophils # 0.1 10^3/ul Basophils # 0.1 10^3/ul Nucleated Red Blood Cells # 0.0 10^3/ul Urine Color COLORLESS Urine Clarity CLEAR Urine pH 7.0 Urine Specific [place] 1.002 Urine Ketones NEGATIVE mg/dL Urine Nitrite NEGATIVE mg/dL Urine Bilirubin NEGATIVE mg/dL Urine Urobilinogen NEGATIVE mg/dL Urine Leukocyte Esterase NEGATIVE [place]/ul Urine Hemoglobin NEGATIVE mg/dL Urine Glucose NEGATIVE mg/dL Urine Total Protein NEGATIVE mg/dl Procedures/[facility] Security one-to-one watch was established patient was placed on creative art director rhythm strip revealed a sinus rhythm at about 80 bpm. Drug screen was positive for methamphetamines and benzodiazepines, aspirin Tylenol levels negative, ethanol level negative. CBC and electrolytes are normal, liver function tests were normal, urinalysis negative for infection. Patient's behavioral symptoms have stabilized while in the department. Patient is medically cleared and appropriate for psychiatric evaluation and work up. No e/o neurologic, toxic, infectious, or metabolic cause. I consulted tele-psychiatry, and they recommended voluntary psychiatric admission given her recent hallucinations and anxiety. Observation Note: Time: 5-1/2 hours Family Hx: No Hypertension Evaluation: Multiple exams showed improving symptoms and no evidence of worsening mental status or abnormal vital signs. Patient is pending transfer to psychiatric facility Departure Diagnosis: Primary Impression: Psychiatric illness Additional Impression: Drug abuse Condition: AFTAB Shrestha MD Jun 19, 2018 16:04
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
[2018-06-20 05:20] VITALS: BP 143/73; PULSE 82; RESP 17
== END 2018-06-20 05:33 ==
LOC: E/R 12:28
DX: F99 Mental disorder, not otherwise specified (principal); F15.10 Other stimulant abuse, uncomplicated; R40.2142 Coma scale, eyes open, spontaneous, at arrival to emergency department; R40.2252 Coma scale, best verbal response, oriented, at arrival to emergency department; R40.2362 Coma scale, best motor response, obeys commands, at arrival to emergency department; F17.210 Nicotine dependence, cigarettes, uncomplicated
CPT/HCPCS: 36415; 80053; 80307; 81003; 84703; 85025; Z7502

== ENCOUNTER 2018-06-26 07:15 | Emergency (ER) | payer SELFPAY ==
[~2018-06-26] VITALS: Ht 162.6 cm; Wt 64.5 kg
[~2018-06-26 07:15] MED LIST changes: -CEPH-443 PO; -CEPH500C PO; -LORA-441 PO; -METH27TA PO; -OLAN15TA7 PO
[2018-06-26 07:24] VITALS: BP 139/66; PULSE 101; RESP 20; Ht 162.6 cm; Wt 64.5 kg
== END 2018-06-26 13:25 | disposition left against medical advice (07) ==
LOC: E/R 07:15
DX: Z53.21 Procedure and treatment not carried out due to patient leaving prior to being seen by health care provider (principal)

== ENCOUNTER 2018-08-21 04:57 | Emergency (ER) | payer SELFPAY ==
[~2018-08-21] VITALS: Ht 162.6 cm; Wt 65.9 kg
[2018-08-21 05:04] VITALS: BP 116/81; PULSE 97; RESP 20; Ht 162.6 cm; Wt 65.9 kg
== END 2018-08-21 07:27 | disposition left against medical advice (07) ==
LOC: FTE 04:57
DX: Z53.21 Procedure and treatment not carried out due to patient leaving prior to being seen by health care provider (principal)